=== PATIENT | male | born 1995 | race Caucasian/White ===

== ENCOUNTER 2019-09-26 10:23 | Emergency (ER) | payer OTHER, SELFPAY ==
[2019-09-26 10:34] VITALS: BP 131/66; PULSE 64; RESP 14; TEMP 37.1; O2SAT 100
[2019-09-26] MEDS: TETANUS,DIPHTHERIA,AC PERTUSSIS ADULT (0.5 ML) BOOSTRIX IM (10:59)
--- NOTE | 2019-09-26 11:05 | ED.WOUNDLAC ---
HPI - Wound/Laceration General Chief Complaint: Wound/Laceration Stated Complaint: cut on left knee Time Seen by Provider: 09/26/19 11:05 Source: patient Mode of arrival: ambulatory Limitations: no limitations History of Present Illness HPI narrative: Henri Miller is a 24 yo male with no PMH who dropped a compressor on L knee. Has a 4 cm laceration with controlled bleeding, lacerations and laceration is greater than 14 hours old. Discussed treatment with patient and closure options Related Data Home Medications Medication Instructions Recorded Confirmed No Home Medications 09/26/19 09/26/19 Allergies Allergy/AdvReac Type Severity Reaction Status Date / Time No Known Allergies Allergy Verified 09/26/19 10:55 Review of Systems Review of Systems: Narrative: CONSTITUTIONAL: Denies fever, chills, sweats. EYES: Denies visual changes, redness, discharge. ENT: Denies rhinorrhea, congestion, sore throat, otalgia. CARDIOVASCULAR: Denies chest pain, palpitations, edema. RESPIRATORY: Denies dyspnea, wheezing, cough GASTROINTESTINAL: Denies abdominal pain, nausea, vomiting, diarrhea. GENITOURINARY: Denies dysuria, hematuria, abnormal discharge SKIN: Denies rash or itching. For centimeter linear laceration on left upper knee NEUROLOGIC: Denies numbness, or focal weakness. PSYCHIATRIC: Denies anxiety or depression. [facility] Family History Family History Other No active medical problems Social History Social History (Updated 09/26/19 @ 11:09 by Nena Traore CNP) Smoking status: Current some day smoker Alcohol intake: current Alcohol use details: Drinks 2 days during the week and every week Comments At time of signature, I agree with nursing past medical, surgical, social and family history. There is no relevant family history pertinent to the presenting complaint. Exam Narrative: Exam Narrative: GENERAL: This is a well-nourished, well-developed patient, in mild distress. HEAD: normocephalic, atraumatic. EYES: Sclera clear/white. Vision is grossly intact. EARS: External ears normal, Hearing grossly intact. NOSE: External nose normal without nasal discharge, nares without redness, no rhinorrhea. THROAT: Mucous membranes moist, NECK: Neck supple, CARDIOVASCULAR: Regular rate and rhythm without murmurs, gallops, or rubs. RESPIRATORY: Clear to auscultation. Breath sounds equal bilaterally. No wheezes, rales, or rhonchi. GASTROINTESTINAL: Abdomen soft, SKIN: warm, intact with 4 cm linear laceration with edges rolled up, discolored NEURO: awake, alert, and oriented to person, place and time. There were no obvious focal neurologic abnormalities. Steady gait EXTREMITIES: Normal range of motion. BACK: Nontender without deformity Course Course Emergency Course: Given tetanus shot Laceration repair-care of lack post repair given to patient Vital Signs Vital signs: Vital Signs Temperature 98.8 F 09/26/19 10:34 Pulse Rate 64 09/26/19 10:34 Respiratory Rate 14 09/26/19 10:34 Blood Pressure 131/66 09/26/19 10:34 Pulse Oximetry 100 09/26/19 10:34 Temperature 98.8 F 09/26/19 10:34 Pulse Rate 64 09/26/19 10:34 Respiratory Rate 14 09/26/19 10:34 Blood Pressure 131/66 09/26/19 10:34 Pulse Oximetry 100 09/26/19 10:34 Procedures Laceration Laceration 1: Date: 09/26/19 Time: 11:00 Site: lower extremity Side (If applicable): left Size (cm): 4 Description: linear Depth: simple, single layer Amount of anesthesia used (mL): 2.5 Pre-repair: minor debridement ====== Skin Level ====== Skin layer closed with: vicryl Size (cm): 4-0 Number of sutures: 3 ====== Subcutaneous Layer ====== ====== Muscle Layer ====== ====== Tendon Layer ====== Dressing: Loosely sutured due to age of laceration- neosporin a
== END 2019-09-26 11:20 | disposition home or self-care (01) ==
PROVIDERS: Emergency Provider Nurse Practitioner
DX: S81.012A Laceration without foreign body, left knee, initial encounter (principal); W20.8XXA Other cause of strike by thrown, projected or falling object, initial encounter; Z23 Encounter for immunization; F17.200 Nicotine dependence, unspecified, uncomplicated
CPT/HCPCS: 12002; 90471; 90715; 99212; G0463